=== PATIENT | male | born 1945 | race African-American/Black ===

== ENCOUNTER 2017-05-29 10:54 | Inpatient (IN) | payer MEDICARE, MEDICAID ==
[~2017-05-29] VITALS: Ht 177.8 cm; Wt 64.9 kg
[2017-05-29] MEDS ORDERED: SODIUM CHLORIDE 0.9% 1,000 ML IV ONE (11:29)
[2017-05-29] MEDS ORDERED: LORAZEPAM 1MG TABLET PO ONE (11:30)
[2017-05-29 11:48] LABS: BASOPHILS % 0.6 % (0.0-2.0); EOSINOPHILS % 0.2 % (0.0-5.0); HEMATOCRIT. 40.1 % (42.0-52.0); HEMOGLOBIN. 13.8 g/dL (14.0-18.0); LYMPHOCYTES % 18.5 % (20.0-50.0); MEAN CORPUSCULAR VOLUME 92.8 fL (80.0-94.0); MEAN PLATELET VOLUME 6.8 fl (7.4-10.4); MONOCYTES % 12.2 % (2.0-8.0); NEUTROPHILS % 68.5 % (40.0-76.0); PLATELET 217 x1000/uL (130-400); RED BLOOD CELL COUNT 4.32 mill/uL (4.7-6.1); RED CELL DISTRIBUTION WIDTH 12.9 % (11.6-14.6)
[2017-05-29 11:55] LABS: PROTHROMBIN TIME 10.7 sec (9.4-11.6)
[2017-05-29 11:59] LABS: AMMONIA 23 uMol/L (<32)
[2017-05-29 12:05] LABS: CARBON DIOXIDE 28 mEq/L (21-32); CHLORIDE 96 mEq/L (98-107)
[2017-05-29 12:06] LABS: CREATINE KINASE 226 IU/L (39-308); ETHANOL BLOOD < 10 mg/dL; TROPONIN I < 0.02 ng/mL (0.00-0.04)
[2017-05-29 12:54] LABS: CLARITY URINE CLEAR (CLEAR); COLOR URINE YELLOW (YELLOW); GLUCOSE URINE NEGATIVE (NEGATIVE); KETONES URINE NEGATIVE (NEGATIVE); LEUKOCYTE ESTERASE URINE NEGATIVE (NEGATIVE); NITRITE URINE NEGATIVE (NEGATIVE); OCCULT BLOOD URINE TRACE (NEGATIVE); PROTEIN URINE NEGATIVE (NEGATIVE); SPECIFIC GRAVITY URINE 1.011 (1.005-1.030); UROBILINOGEN URINE 0.2 E.U./dL (0.2-1.0)
[2017-05-29 13:07] LABS: *AMPHETAMINES SCREEN URINE NEGATIVE (NEGATIVE); *BARBITURATES SCREEN URINE NEGATIVE (NEGATIVE); *BENZODIAZEPINES SCREEN URINE NEGATIVE (NEGATIVE); *COCAINE SCREEN URINE NEGATIVE (NEGATIVE); CANNABINOID URINE SCREEN NEGATIVE (NEGATIVE); METHADONE URINE SCREEN NEGATIVE (NEGATIVE); OPIATES URINE SCREEN NEGATIVE (NEGATIVE); PHENCYCLIDINE URINE SCREEN NEGATIVE (NEGATIVE)
[2017-05-29] MEDS ORDERED: CLONIDINE 0.2MG TABLET PO ONE (15:45)
[2017-05-29] MEDS ORDERED: HYDRALAZINE 20MG/ML VIAL IV NR (16:15)
[2017-05-29 17:00] VITALS: BP 117/67
[2017-05-29] MEDS ORDERED: MAGNESIUM/ALUMINUM HYDROXIDE/SIMETHICONE 30ML UDC PO PRN (18:30)
[2017-05-29] MEDS ORDERED: DIPHENHYDRAMINE 50MG/ML VIAL IV PRN (18:30)
[2017-05-29] MEDS ORDERED: ONDANSETRON HCL 4MG/2ML VIAL IV PRN (18:30)
[2017-05-29] MEDS ORDERED: ACETAMINOPHEN 325MG TABLET PO PRN (18:30)
[2017-05-29] MEDS ORDERED: IPRATROPIUM/ALBUTEROL 0.5-3(2.5)MG/3ML NEB INH PRN (18:30)
[2017-05-29] MEDS ORDERED: CLONIDINE 0.1MG TABLET PO PRN (18:30)
[2017-05-29 19:01] VITALS: BP 117/67
[2017-05-29 20:00] VITALS: BP 154/72
[2017-05-29] MEDS: LORAZEPAM 2MG/ML CPJ IV PRN (21:37)
[2017-05-29] MEDS: SODIUM CHLORIDE 0.9% INJ 3ML FLUSH IVF SCH (21:37)
[2017-05-29] MEDS: AMLODIPINE 5MG TABLET PO SCH (21:37)
[2017-05-30] VITALS: BP 87/43
[2017-05-30] MEDS ORDERED: SODIUM CHLORIDE 0.9% 500 ML IV SCH (00:26)
[2017-05-30] MEDS ORDERED: SODIUM CHLORIDE 0.9% 500 ML IV NR (00:30)
[2017-05-30] MEDS: LORAZEPAM 2MG/ML CPJ IV PRN ×2 (02:17→21:53)
[2017-05-30 04:00] VITALS: BP 94/48
[2017-05-30 08:06] VITALS: BP 146/71
[2017-05-30] MEDS: AMLODIPINE 5MG TABLET PO SCH ×2 (08:14→20:55)
[2017-05-30] MEDS: SODIUM CHLORIDE 0.9% INJ 3ML FLUSH IVF SCH ×3 (08:17→20:55)
[2017-05-30] MEDS ORDERED: PNEUMOCOCCAL 23-VAL P-SAC VAC 0.5 ML IM ONE (10:00)
[2017-05-30 12:00] VITALS: BP 129/70
[2017-05-30 16:06] VITALS: BP 158/85
[2017-05-30 20:00] VITALS: BP 148/75
[2017-05-31] VITALS: BP 129/72
[2017-05-31] MEDS: LORAZEPAM 2MG/ML CPJ IV PRN ×2 (01:51→22:03)
[2017-05-31 04:00] VITALS: BP 115/66
[2017-05-31] MEDS: SODIUM CHLORIDE 0.9% INJ 3ML FLUSH IVF SCH ×3 (05:34→20:43)
[2017-05-31 08:00] VITALS: BP 117/70
[2017-05-31] MEDS: AMLODIPINE 5MG TABLET PO SCH ×2 (09:58→20:43)
[2017-05-31 12:00] VITALS: BP 138/78
[2017-05-31 16:00] VITALS: BP 121/65
[2017-05-31 20:00] VITALS: BP 168/84
[2017-05-31 21:39] LABS: VITAMIN B12 SERUM 926 pg/mL (211-911)
[2017-06-01 00:02] VITALS: BP 159/77
[2017-06-01 04:01] VITALS: BP 145/77
[2017-06-01] MEDS: SODIUM CHLORIDE 0.9% INJ 3ML FLUSH IVF SCH ×3 (05:28→22:50)
[2017-06-01 07:32] LABS: BASOPHILS % 0.5 % (0.0-2.0); EOSINOPHILS % 1.5 % (0.0-5.0); HEMATOCRIT. 40.3 % (42.0-52.0); LYMPHOCYTES % 32.8 % (20.0-50.0); MEAN CORPUSCULAR HEMOGLOBIN 32.1 pg (28.0-32.0); MEAN CORPUSCULAR VOLUME 92.5 fL (80.0-94.0); MONOCYTES % 13.6 % (2.0-8.0); NEUTROPHILS % 51.6 % (40.0-76.0); PLATELET 232 x1000/uL (130-400); RED BLOOD CELL COUNT 4.36 mill/uL (4.7-6.1)
[2017-06-01 08:00] VITALS: BP 129/67
[2017-06-01 08:09] LABS: CARBON DIOXIDE 25 mEq/L (21-32); CHLORIDE 97 mEq/L (98-107)
[2017-06-01] MEDS: AMLODIPINE 5MG TABLET PO SCH ×2 (08:12→21:00)
[2017-06-01 16:00] VITALS: BP 132/75
[2017-06-01 20:00] VITALS: BP 110/68
[2017-06-02] MEDS: LORAZEPAM 2MG/ML CPJ IV PRN (00:54)
[2017-06-02 04:00] VITALS: BP 161/90
[2017-06-02] MEDS: AMLODIPINE 5MG TABLET PO SCH (04:43)
[2017-06-02] MEDS: SODIUM CHLORIDE 0.9% INJ 3ML FLUSH IVF SCH ×2 (06:00→14:00)
[2017-06-02 08:00] VITALS: BP 142/86
[2017-06-02 12:00] VITALS: BP 134/76
[2017-06-02 21:00] VITALS: BP 134/76
== END 2017-06-02 20:35 | disposition home or self-care (01) | DRG 884 ==
LOC: ER 10:54 → EDBEDREQ 13:50 → ENRESERV 15:16 → 5WST 17:19
PROVIDERS: ADMIT Internal Medicine; ATTEND Internal Medicine
DX: F03.91 Unspecified dementia, unspecified severity, with behavioral disturbance (principal); G93.40 Encephalopathy, unspecified; E87.1 Hypo-osmolality and hyponatremia; I65.21 Occlusion and stenosis of right carotid artery; I10 Essential (primary) hypertension; E86.0 Dehydration; R29.6 Repeated falls
CPT/HCPCS: 36415; 70450; 70551; 71010; 80048; 80053; 80061; 80305; 81001; 82140; 82550; 82607; 83735; 83880; 84443; 84484; 85025; 85610; 90732; 93005; 93880; 93970; 96361; 96374; 97116; 97162; 97166; 99285; G0482; J0360; J1200; J2060; J7030; J7040